=== PATIENT | female | born 1965 | race Caucasian/White ===

== ENCOUNTER 2017-02-11 22:29 | Emergency (ER) | payer BC ==
[2017-02-11 22:39] VITALS: RESP 18; TEMP 97.4
--- NOTE | 2017-02-11 23:10 | ED ---
Fall HPI - General Chief Complaint: Fall Stated Complaint: fall Time Seen by Provider: 02/11/17 22:46 Source: patient Mode of arrival: wheelchair - History of Present Illness Initial Comments: Patient is a 52-year-old female presenting to the emergency department with chief complaint of left knee pain after she tripped in her flip flops walking up a step at 3 PM this afternoon. Patient states she was carrying a bottle of soda. Patient states when she fell she landed on her right cheek and right knee. Patient states she was able to ambulate after the fall but the pain has gotten progressively worse so she is now unable to put weight on her right lower extremity. Patient denies loss of consciousness. Patient currently rates pain 7 out of 10, described as sharp, exacerbated with flexion and extension and standing, relieved with rest. Patient states she took Motrin 600 mg 2 hours prior to arrival and has been applying ice to her knee.. Patient denies previous injury or trauma to right lower extremity. Patient is complaining of mild facial pain to the right side of her face. Patient denies recent illness, fevers, nausea, vomiting, lightheadedness, dizziness, shortness of breath, chest pain, palpitations, abdominal pain, or distal paresthesia. Patient denies any other injuries. - Related Data Previous Rx's Medication Instructions Recorded HYDROcodone/APAP 5-325MG [[place] 1 tab PO Q6H PRN #12 tab 02/11/17 5-325] Allergies Allergy/AdvReac Type Severity Reaction Status Date / Time No Known Allergies Allergy Verified 02/11/17 22:39 Review of Systems ROS Statement: Those systems with pertinent positive or pertinent negative responses have been documented in the HPI. ROS Other: All systems not noted in ROS Statement are negative. Past Medical History Past Medical History: No Reported History History of Any Multi-Drug Resistant Organisms: None Reported Past Surgical History: Cholecystectomy Past Psychological History: No Psychological Hx Reported Smoking Status: Current every day smoker Past Alcohol Use History: None Reported Past Drug Use History: None Reported General Exam Limitations: no limitations General appearance: alert, in no apparent distress Head exam: Present: normocephalic, normal inspection. Absent: atraumatic (Mild bruising noted to right cheek.) Eye exam: Present: normal appearance, PERRL, EOMI. Absent: scleral icterus, conjunctival injection, periorbital swelling, periorbital tenderness ENT exam: Present: mucous membranes moist, TM's normal bilaterally, normal external ear exam Expanded Mouth exam: Present: laceration (Small laceration to right upper lip) Teeth exam: Present: normal inspection Throat exam: normal inspection Neck exam: Present: normal inspection, full ROM. Absent: tenderness Respiratory exam: Present: normal lung sounds bilaterally. Absent: respiratory distress, wheezes, rales, rhonchi, stridor Cardiovascular Exam: Present: regular rate, normal rhythm, normal heart sounds. Absent: systolic murmur, diastolic murmur, rubs, gallop, clicks GI/Abdominal exam: Present: soft, normal bowel sounds. Absent: tenderness Right Knee exam: Present: tenderness (Tenderness and swelling noted to inferior aspect of right patella.), swelling, abrasion (Abrasion noted to right anterior knee). Absent: ecchymosis, deformity, full knee extension (Pain with knee flexion and extension) Lower Leg exam: Present: normal inspection. Absent: full ROM, tenderness Ankle exam: Present: normal inspection, full ROM. Absent: tenderness, swelling Foot/Toe exam: Present: normal inspection, full ROM. Absent: tenderness, swelling Neurovascular tendon exam: Present: no vascular compromise. Absent: pulse deficit, abnormal cap refill, motor deficit, sensory deficit, extremity cold to touch, foot drop, significant pain with passive ROM of distal joint Gait: not tested/not observed Neurological exam: Present: alert, oriented X3, other (No focal deficits noted) Psychiatric exam: Present: normal affect, normal mood Skin exam: Present: warm, dry, normal color Course Vital Signs 02/11/17 02/11/17 22:36 23:32 Temperature 97.4 F L 97.4 F L Pulse Rate 80 83 Respiratory 18 18 Rate Blood Pressure 202/86 151/72 O2 Sat by Pulse 99 100 Oximetry Medical Decision Making - Medical Decision Making Right knee sprain. Right knee x-ray with no evidence of acute fracture or malalignment. Tricompartment degenerative changes of the knee. Patient provided with the immobilizer. Patient instructed to continue ice, elevation, immobilization, and rest. Patient instructed to follow-up with orthopedic service. Patient agrees with treatment plan. Discharge instructions and return parameters reviewed. - Radiology Data Radiology results: report reviewed Right knee x-ray: No acute fracture or malalignment. Tricompartment degenerative changes of the knee. Disposition Clinical Impression: Sprain of right knee Disposition: HOME SELF-CARE Condition: Good Instructions: Knee Sprain (ED) Additional Instructions: Avoid activity that causes pain, use knee immobilizer and crutches for support. Ice 20 minutes 4 times a day usually for 2-3 days Keep elevated as much as possible 24-48 hours. Continue Motrin and Tylenol for pain. Return to the emergency department with symptoms of increased swelling, pain, numbness, tingling, or foot feeling cold to touch. Follow-up with primary service and orthopedic service as directed. Prescriptions: HYDROcodone/APAP 5-325MG [[place] 5-325] 1 tab PO Q6H PRN #12 tab PRN Reason: Pain Referrals: Nonstaff,Physician [Primary Care Provider] - 1-2 days Francisco J Bautista MD [STAFF PHYSICIAN] - 1-2 days Time of Disposition: 23:38
--- NOTE | 2017-02-11 23:22 | XR ---
EXAM: XR Right Knee, 3 views CLINICAL HISTORY: Pain TECHNIQUE: Three views of the right knee. COMPARISON: No relevant prior studies available. FINDINGS: Bones/joints: No acute fracture or malalignment. Tricompartment degenerative changes of the knee. Prominent enthesophytes noted about the quadriceps and patellar tendons. Soft tissues: Unremarkable. Vasculature: Vascular calcifications. IMPRESSION: No acute findings.
[2017-02-11] MEDS ORDERED: HYDROcodone/APAP 5-325MG 1 EACH TAB PO STA (23:27)
[2017-02-11 23:34] VITALS: BP 151/72; PULSE 83
== END 2017-02-11 23:44 | disposition home or self-care (01) ==
LOC: EC 22:29
DX: S83.91XA Sprain of unspecified site of right knee, initial encounter (principal); S01.511A Laceration without foreign body of lip, initial encounter; S00.83XA Contusion of other part of head, initial encounter; M25.562 Pain in left knee; F17.200 Nicotine dependence, unspecified, uncomplicated; W01.190A Fall on same level from slipping, tripping and stumbling with subsequent striking against furniture, initial encounter; Y93.01 Activity, walking, marching and hiking
CPT/HCPCS: 99283; 29515; 73562; L1830